=== PATIENT | male | born 1945 | race Caucasian/White ===

== ENCOUNTER 2023-08-04 17:36 | Emergency (ER) | payer MEDICARE, BC, SELFPAY ==
[2023-08-04] VITALS (10 sets, daily range): BP systolic 117–134; BP diastolic 73–82; PULSE 58–82; RESP 16; TEMP 36.2; O2SAT 93–97; BMI 26.5
--- NOTE | 2023-08-04 18:49 | ED_ITS ---
HPI - General Adult General Chief complaint: Chest Pain Stated complaint: Shoulder/chest/back pain Time Seen by Provider: 08/04/23 18:38 History of Present Illness HPI narrative: This 77-year-old male comes in reporting some discomfort in his right shoulder that kind of migrated into his right chest. This occurred like an hour or 2 prior to arrival while he was out golfing. He states that the pain is reproducible with certain movements. He was golfing with an EMT who recommend that he come in for evaluation. He states that he did have an echocardiogram a few weeks ago which showed some evidence of aortic stenosis. He does not report any hypoxia, lightheadedness, shortness of breath, nausea, vomiting, or diaphoresis. He does not report any exercise intolerance. Related Data Home Medications Medication Instructions Recorded Confirmed amlodipine 10 mg tablet 5 mg PO DAILY 01/05/23 08/04/23 aspirin 81 mg tablet,delayed 81 mg PO DAILY 01/05/23 08/04/23 release empagliflozin 25 mg tablet 25 mg PO DAILY 01/05/23 08/04/23 (Jardiance) glipizide 10 mg tablet, extended 10 mg PO BID 01/05/23 08/04/23 release 24 hr levetiracetam 500 mg 1,500 ea PO HS 01/05/23 08/04/23 tablet,extended release 24 hr losartan 100 mg tablet 100 mg PO DAILY 01/05/23 08/04/23 metformin 1,000 mg tablet 500 mg PO BID 01/05/23 08/04/23 omeprazole 40 mg capsule,delayed 20 mg PO DAILY 01/05/23 08/04/23 release rosuvastatin 10 mg tablet 10 mg PO HS 01/05/23 08/04/23 sildenafil 100 mg tablet 100 mg PO ONCE PRN 01/05/23 08/04/23 tamsulosin 0.4 mg capsule 0.4 mg PO BID 01/05/23 08/04/23 finasteride 5 mg tablet 5 mg PO DAILY 08/04/23 08/04/23 Allergies Allergy/AdvReac Type Severity Reaction Status Date / Time No Known Drug Allergies Allergy Verified 08/04/23 17:47 Review of Systems Status of ROS: Reports: 10 or more systems reviewed and unremarkable except as noted in History and below Narrative: Constitutional: No fevers, no weight gain or loss. Eyes: No discharge. No vision changes. HENT: No congestion, no sore throat, no ear pain. Cardiovascular: No chest pain, no palpitations. Respiratory: No shortness of breath, no wheezes, no cough. Gastrointestinal: No abdominal pain, no vomiting, no diarrhea. Genitourinary: No dysuria, no hematuria. Musculoskeletal: Normal range of motion. Pain in the right shoulder region extending into his right chest a bit. Skin: No rashes, no pruritis. Neurological: No dizziness, weakness, sensory change, speech change. Endo/Heme/Allergies: No bruising or bleeding. No polydipsia. Pysch: no suicidality, no anxiety, no insomnia. All other systems reviewed and are negative. [facility] Medical History , RN) Arrhythmia Diabetes Hypertension Pacemaker Prostate cancer Seizures Surgical History , RN) Hx of laminectomy S/P right knee arthroscopy (11/07/21) Social History Smoking Status: Former smoker How often do you have a drink containing alcohol: 4 or more times a week How many standard drinks containing alcohol do you have on a typical day: 3 or 4 How often do you have six or more drinks on one occasion: Never AUDIT-C Alcohol total score: 5 Non-prescribed substance use: denies use Exam Narrative: Exam Narrative: Constitutional: Well-developed, well-nourished, no acute distress. HEENT: Normocephalic, atraumatic. Neck: Normal range of motion. Nontender. Supple. Heart: Regular. Systolic ejection murmur. Normal rate. Intact distal pulses. Lungs: Clear to auscultation. No chest discomfort. No wheezes, rhonchi, or rales. Abdomen: Normal bowel sounds. Nontender. No rebound tenderness. Genitalia: Deferred. Back: No midline tenderness. Normal range of motion. Extremities: Normal range of motion. No injury. Skin: Intact. No rash. Warm. No erythema or pallor. Neurologic: No altered sensation. No weakness. Alert and oriented. Psychiatric: No suicidality. No anxiety or depression. No insomnia. Nursing notes and vitals signs are reviewed. Const: Vital Signs, click to edit/add: Vital Signs - 24 hr 08/04/23 17:44 08/04/23 18:30 08/04/23 18:34 Temperature 97.2 F L Pulse Rate 69 Pulse Rate [Pulse Oximeter] 82 Respiratory Rate 16 Blood Pressure Blood Pressure [Ri ght Upper Arm] 117/73 Pulse Oximetry 95 95 94 Oxygen Delivery Me thod Room Air 08/04/23 18:35 08/04/23 18:45 08/04/23 19:00 Temperature Pulse Rate 60 58 L 62 Pulse Rate [Pulse Oximeter] Respiratory Rate Blood Pressure 126/77 Blood Pressure [Ri ght Upper Arm] Pulse Oximetry 95 95 93 Oxygen Delivery Me thod 08/04/23 19:02 08/04/23 19:15 Temperature Pulse Rate 62 68 Pulse Rate [Pulse Oximeter] Respiratory Rate Blood Pressure 126/82 Blood Pressure [Ri ght Upper Arm] Pulse Oximetry 95 93 Oxygen Delivery Me thod Course Vital Signs Vital signs: Initial Vital Signs Temperature 97.2 F L 08/04/23 17:44 Temperature Source Temporal Artery Scan 08/04/23 17:44 Pulse Rate 82 08/04/23 17:44 Respiratory Rate 16 08/04/23 17:44 Blood Pressure 117/73 08/04/23 17:44 Blood Pressure Mean 87 08/04/23 17:44 Blood Pressure Position Sitting 08/04/23 17:44 Pulse Oximetry 95 08/04/23 17:44 Oxygen Delivery Method Room Air 08/04/23 17:44 Vital Signs Temperature 97.2 F L 08/04/23 17:44 Pulse Rate 82 08/04/23 17:44 Respiratory Rate 16 08/04/23 17:44 Blood Pressure 117/73 08/04/23 17:44 Pulse Oximetry 95 08/04/23 17:44 Oxygen Delivery Method Room Air 08/04/23 17:44 Temperature 97.2 F L 08/04/23 17:44 Pulse Rate 68 08/04/23 19:15 Respiratory Rate 16 08/04/23 17:44 Blood Pressure 126/82 08/04/23 19:02 Pulse Oximetry 93 08/04/23 19:15 Oxygen Delivery Method Room Air 08/04/23 17:44 Medical Decision Making MDM Narrative Medical decision making narrative: This patient comes in out of abundance of caution because of some pain in his right shoulder that kind of extended into his right chest. He really thinks that it is musculoskeletal discomfort that occurred while he was out golfing. He comes in to rule out any other more serious cause. EKG shows normal sinus rhythm with no sign of ST or T-wave abnormalities. Lab results also returned with normal findings. His troponin is 0. The patient does have some aortic stenosis and recently had an echocardiogram. 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 Lab Data Labs: Lab Results 08/04/23 Range/Units 18:30 WBC 8.46 (4.50-11.00) K/uL RBC 5.31 (4.30-5.90) m/uL Hgb 16.4 (13.5-17.5) gm/dL Hct 49.0 (37.0-53.0) % MCV 92 (80-100) fL MCH 31 (26-34) pg MCHC 34 (32-36) gm/dL RDW Coeff of Rosaura 12.8 (11.5-15.5) % Plt Count 151 (140-440) K/uL Neut % (Auto) 68.6 (42.0-72.0) % Lymph % (Auto) 18.3 L (20-44) % [place] % (Auto) 10.5 (0.0-11.0) % Eos % (Auto) 2.1 (0.0-7.0) % Baso % (Auto) 0.4 (0.0-3.0) % Neut # (Auto) 5.80 (1.7-7.0) K/uL Lymph # (Auto) 1.50 (0.90-2.90) K/uL [place] # (Auto) 0.90 (0.00-0.90) K/UL Eos # (Auto) 0.18 (0.00-0.50) K/uL Baso # (Auto) 0.03 (0.00-0.30) K/uL Abs Immat Gran (auto) 0.01 (0.00-0.30) K/uL Imm/Tot Granulo (auto) 0.1 % Sodium 140 (135-149) mmol/L Potassium 3.8 (3.6-5.1) mmol/L Chloride 106 (96-114) mmol/L Carbon Dioxide 22 (20-32) mmol/L Anion Gap 12 (7-15) mEq/L BUN 16 (7-30) mg/dL Creatinine 1.2 (0.5-1.5) mg/dL Estimated Creat Clear 54.91 Estimated GFR 62 ml/min Glucose 89 (60-115) mg/dL Calcium 9.4 (8.4-10.6) mg/dL POC Troponin I 0.01 (0.01-0.04) ng/ml ECG Data Attestation: I personally reviewed and interpreted this ECG as follows: Interpretation: Normal sinus rhythm. Rate is 86 beats per minute. There are no ST or T-wave abnormalities. Discharge Plan Discharge Clinical Impression: Atypical chest pain Patient Disposition: Home, Self-Care Condition: Stable Additional Instructions: Continue current plans. Follow up with MD or return if worsening symptoms occur. Prescriptions: No Action levetiracetam 500 mg tablet extended release 24 hr 1,500 ea PO HS Patient Comments: TAKE THREE TABLETS BY MOUTH AT BEDTIME tamsulosin 0.4 mg capsule 0.4 mg PO BID Patient Comments: TAKE TWO CAPSULES BY MOUTH DAILY AFTER A MEAL glipizide 10 mg tablet extended release 24hr 10 mg PO BID Patient Comments: TAKE ONE TABLET BY MOUTH TWICE DAILY BEFORE MEALS rosuvastatin 10 mg tablet 10 mg PO HS omeprazole 40 mg capsule,delayed release(DR/EC) 20 mg PO DAILY Patient Comments: TAKE 1 CAPSULE BY MOUTH ONCE DAILY losartan 100 mg tablet 100 mg PO DAILY Patient Comments: TAKE 1 TABLET BY MOUTH EVERY DAY metformin 1,000 mg tablet 500 mg PO BID Patient Comments: Jardiance 25 mg tablet 25 mg PO DAILY Patient Comments: TAKE ONE TABLET BY MOUTH ONE TIME DAILY sildenafil 100 mg tablet 100 mg PO ONCE PRN Patient Comments: TAKE ONE HALF TABLET BY MOUTH ONCE DAILY NEEDED FOR ED. TAKE 30 MIN TO 4 HOURS BEFORE SEXUAL ACTIVITY. MAX 100MG / 24HRS amlodipine 10 mg tablet 5 mg PO DAILY Patient Comments: TAKE 1 TABLET BY MOUTH EVERY DAY aspirin 81 mg tablet,delayed release (DR/EC) 81 mg PO DAILY finasteride 5 mg tablet 5 mg PO DAILY Follow Up/Referrals: David Crawford MD [Primary Care Provider] - Stand Alone Forms: [employer] Info Instructions
[2023-08-04 18:53] LABS: Troponin, Point-of-Care* 0.01 ng/ml (0.01-0.04)
[2023-08-04 19:00] LABS: Basophils Absolute Auto 0.03 K/uL (0.00-0.30); Basophils Percent Auto 0.4 % (0.0-3.0); Eosinophils Absolute Auto 0.18 K/uL (0.00-0.50); Eosinophils Percent Auto 2.1 % (0.0-7.0); Hemoglobin* 16.4 gm/dL (13.5-17.5); Immature Granulocytes Abs Auto 0.01 K/uL (0.00-0.30); Immature Granulocytes Pct Auto 0.1 %; Lymphocytes Percent Auto 18.3 % (20-44); Mean Corpuscular HGB Conc 34 gm/dL (32-36); Mean Corpuscular Hemoglobin 31 pg (26-34); Mean Corpuscular Volume 92 fL (80-100); Monocytes Percent Auto 10.5 % (0.0-11.0); Neutrophils Percent Auto 68.6 % (42.0-72.0); Platelet Count* 151 K/uL (140-440); RDW Coefficient of Variation % 12.8 % (11.5-15.5); Red Blood Count 5.31 m/uL (4.30-5.90); White Blood Count* 8.46 K/uL (4.50-11.00)
[2023-08-04 19:06] LABS: Slide Review Reflex No
[2023-08-04 19:12] LABS: Chloride* 106 mmol/L (96-114); Potassium* 3.8 mmol/L (3.6-5.1); Sodium* 140 mmol/L (135-149)
[2023-08-04 19:15] LABS: Anion Gap 12 mEq/L (7-15); Carbon Dioxide* 22 mmol/L (20-32); Creatinine* 1.2 mg/dL (0.5-1.5); Est. Creatinine Clearance* 54.91; Estimated Glomerular Filt Rate 62 ml/min
[2023-08-04 19:16] LABS: Blood Urea Nitrogen* 16 mg/dL (7-30); Calcium* 9.4 mg/dL (8.4-10.6); Glucose* 89 mg/dL (60-115)
== END 2023-08-04 19:55 | disposition home or self-care (01) ==
PROVIDERS: Emergency Provider Emergency Medicine Emergency Medical Services; PCP Family Medicine
DX: R07.9 Chest pain, unspecified (principal)
CPT/HCPCS: 36415; 80048; 84484; 85025; 93005; 94761; 99284

== ENCOUNTER 2024-05-13 09:41 | Outpatient (CLI) | payer MEDICARE, SELFPAY ==
--- NOTE | 2024-05-13 12:01 | W.ANESCHARGE ---
Anesthesia Charges Start Date/Time Anesthesia Start Date: 05/13/24 Anesthesia Start Time: 11:35 Stop Date/Time Anesthesia Stop Date: 05/13/24 Anesthesia Stop Time: 12:01 Summary Extremes of Age - Over 70 or under 1: MDA
--- NOTE | 2024-05-13 12:06 | W.ANESCHARGE ---
Anesthesia Charges Start Date/Time Anesthesia Start Date: 05/13/24 Anesthesia Start Time: 11:35 Stop Date/Time Anesthesia Stop Date: 05/13/24 Anesthesia Stop Time: 12:01
== END 2024-05-13 09:42 | disposition home or self-care (01) ==
LOC: OP CLINIC 09:43
PROVIDERS: PCP Family Medicine; Visit Provider Internal Medicine Gastroenterology
DX: Z12.11 Encounter for screening for malignant neoplasm of colon (principal); K63.5 Polyp of colon; Z86.010 Personal history of colon polyps
CPT/HCPCS: 00811; 45385; 88305; 99100; J2704

== ENCOUNTER 2024-06-04 14:56 | Outpatient (CLI) | payer MEDICARE, SELFPAY | END 2024-06-04 14:57 | disposition home or self-care (01) | LOC: AMB 06-05 02:46 | PROVIDERS: PCP Family Medicine; Visit Provider Emergency Medicine Emergency Medical Services | DX: R07.89 Other chest pain (principal) | CPT/HCPCS: A0425; A0427 ==

== ENCOUNTER 2024-06-04 15:23 | Emergency (ER) | payer MEDICARE, SELFPAY ==
[2024-06-04] VITALS (9 sets, daily range): BP systolic 130–159; BP diastolic 86–112; PULSE 63–75; RESP 12–18; TEMP 36.6; O2SAT 94–100; BMI 26.5
--- NOTE | 2024-06-04 15:54 | ED_ITS ---
HPI - Chest Pain General Chief Complaint: Chest Pain Stated Complaint: Chest pain Time Seen by Provider: 06/04/24 15:26 History of Present Illness HPI narrative: This 78-year-old male comes in reporting onset of chest pain about 2 hours prior to arrival. He was doing some light activity all in the yd and had rather sudden onset of pain that he rated at 7/10 in severity. He made his way back into the house and sat for about half an hour and the pain did not subside. He came in then by ambulance after taking 8 baby aspirin. He does have a history of a aortic stenosis and is scheduled to have an angiogram next week as part of a plan with Collect to attend to a valve repair or replacement. He does not report any exertional symptoms in the past. He states that he went golfing every day other the past week and did not have any symptoms. Today he denies having any nausea, vomiting, lightheadedness, shortness of breath, or diaphoresis. He states that he continues to feel some very mild discomfort. He does have a pacemaker. Related Data Home Medications ?Medication ?Instructions ?Recorded ?Confirmed amlodipine 10 mg tablet 10 mg PO DAILY 01/05/23 06/04/24 aspirin 81 mg tablet,delayed 81 mg PO DAILY 01/05/23 06/04/24 release empagliflozin 25 mg tablet 25 mg PO DAILY 01/05/23 06/04/24 (Jardiance) glipizide 10 mg tablet, extended 10 mg PO BID 01/05/23 06/04/24 release 24 hr levetiracetam 500 mg 1,000 mg PO BID 01/05/23 06/04/24 tablet,extended release 24 hr losartan 100 mg tablet 100 mg PO DAILY 01/05/23 06/04/24 metformin 1,000 mg tablet 500 mg PO BID 01/05/23 06/04/24 omeprazole 40 mg capsule,delayed 40 mg PO DAILY 01/05/23 06/04/24 release rosuvastatin 10 mg tablet 10 mg PO HS 01/05/23 06/04/24 sildenafil 100 mg tablet 100 mg PO ONCE PRN 01/05/23 06/04/24 tamsulosin 0.4 mg capsule 0.8 mg PO Q24H 01/05/23 06/04/24 finasteride 5 mg tablet 5 mg PO DAILY 08/04/23 08/04/23 Lactobacillus acidophilus 10 100 mmu cells PO DAILY 06/04/24 06/04/24 billion cell capsule (NewFlora) budesonide 0.25 mg/2 mL suspension 0.25 mg inhalation Q12H 06/04/24 06/04/24 for nebulization cholecalciferol (vitamin D3) 25 25 mcg PO DAILY 06/04/24 06/04/24 mcg (1,000 unit) capsule (Vitamin D3) coenzyme Q10 200 mg capsule (Co 200 mg PO DAILY 06/04/24 06/04/24 Q-10) cyanocobalamin (vitamin B-12) 1,000 mcg PO DAILY 06/04/24 06/04/24 1,000 mcg capsule glucosamine-chondroitin 500 mg-400 1 tab PO BID 06/04/24 06/04/24 mg tablet (Cosamin DS) magnesium glycinate 100 mg (as 200 mg PO DAILY 06/04/24 06/04/24 glycinate) tablet [id number]-ebeynywa-zvefwf 1 tab PO DAILY 06/04/24 06/04/24 tablet (Multivitamin 50 Plus tablet) omega 6-fxs-ypf-fish oil 1,000 mg 1 cap PO DAILY 06/04/24 06/04/24 (120 mg-180 mg) capsule (Fish Oil) turmeric 400 mg capsule 47.5 mg PO DAILY 06/04/24 06/04/24 Allergies Allergy/AdvReac Type Severity Reaction Status Date / Time lisinopril AdvReac Cough Verified 06/04/24 15:26 Review of Systems Status of ROS Reports: 10 or more systems reviewed and unremarkable except as noted in History and below Narrative Constitutional: No fevers, no weight gain or loss. Eyes: No discharge. No vision changes. HENT: No congestion, no sore throat, no ear pain. Cardiovascular: No palpitations. Chest pain as described above. Respiratory: No shortness of breath, no wheezes, no cough. Gastrointestinal: No abdominal pain, no vomiting, no diarrhea. Genitourinary: No dysuria, no hematuria. Musculoskeletal: Normal range of motion. Skin: No rashes, no pruritis. Neurological: No dizziness, weakness, sensory change, speech change. Endo/Heme/Allergies: No bruising or bleeding. No polydipsia. Pysch: no suicidality, no anxiety, no insomnia. All other systems reviewed and are negative. [facility] Medical History , RN) Arrhythmia Diabetes Hypertension Pacemaker Prostate cancer Seizures Surgical History , RN) Hx of laminectomy S/P right knee arthroscopy (11/07/21) Social History Smoking Status: Former smoker How often do you have a drink containing alcohol: 4 or more times a week How many standard drinks containing alcohol do you have on a typical day: 3 or 4 How often do you have six or more drinks on one occasion: Never AUDIT-C Alcohol total score: 5 Non-prescribed substance use: denies use Exam Narrative Exam Narrative: Constitutional: Well-developed, well-nourished, no acute distress. HEENT: Normocephalic, atraumatic. Neck: Normal range of motion. Nontender. Supple. Heart: Regular. No murmurs. Normal rate. Intact distal pulses. Lungs: Clear to auscultation. Chest pain as described above. The pain is not reproducible with deep breath or palpating in his chest. No wheezes, rhonchi, or rales. Abdomen: Normal bowel sounds. Nontender. No rebound tenderness. Genitalia: Deferred. Back: No midline tenderness. Normal range of motion. Extremities: Normal range of motion. No injury. Skin: Intact. No rash. Warm. No erythema or pallor. Neurologic: No altered sensation. No weakness. Alert and oriented. Psychiatric: No suicidality. No anxiety or depression. No insomnia. Nursing notes and vitals signs are reviewed. Const Vital Signs, click to edit/add: Vital Signs - 24 hr 06/04/24 15:26 06/04/24 15:28 06/04/24 16:00 Temperature 97.8 F Pulse Rate 63 72 Pulse Rate [Pulse Oximeter] 71 Respiratory Rate 18 14 14 Blood Pressure 159/86 H 153/90 H Blood Pressure [Right Upper Arm] 159/86 H Pulse Oximetry 99 99 97 Oxygen Delivery Method Room Air 06/04/24 16:30 06/04/24 17:00 06/04/24 17:39 Temperature Pulse Rate 72 75 68 Pulse Rate [Pulse Oximeter] Respiratory Rate 12 16 14 Blood Pressure 147/91 H Blood Pressure [Right Upper Arm] Pulse Oximetry 94 98 97 Oxygen Delivery Method 06/04/24 18:02 Temperature Pulse Rate 64 Pulse Rate [Pulse Oximeter] Respiratory Rate 14 Blood Pressure 130/90 H Blood Pressure [Right Upper Arm] Pulse Oximetry 100 Oxygen Delivery Method Room Air Course Vital Signs Vital signs: Initial Vital Signs Temperature 97.8 F 06/04/24 15:26 Temperature Source Temporal Artery Scan 06/04/24 15:26 Pulse Rate 71 06/04/24 15:26 Respiratory Rate 18 06/04/24 15:26 Blood Pressure 159/86 H 06/04/24 15:26 Blood Pressure Mean 110 H 06/04/24 15:26 Blood Pressure Position Semi-Fowlers 06/04/24 15:26 Pulse Oximetry 99 06/04/24 15:26 Oxygen Delivery Method Room Air 06/04/24 15:26 Vital Signs Temperature 97.8 F 06/04/24 15:26 Pulse Rate 71 06/04/24 15:26 Respiratory Rate 18 06/04/24 15:26 Blood Pressure 159/86 H 06/04/24 15:26 Pulse Oximetry 99 06/04/24 15:26 Oxygen Delivery Method Room Air 06/04/24 15:26 Temperature 97.8 F 06/04/24 15:26 Pulse Rate 64 06/04/24 18:02 Respiratory Rate 14 06/04/24 18:02 Blood Pressure 130/90 H 06/04/24 18:02 Pulse Oximetry 100 06/04/24 18:02 Oxygen Delivery Method Room Air 06/04/24 18:02 MDM - Chest Pain MDM Narrative Medical decision making narrative: This patient comes in reporting chest pain as described above. Upon arrival here he had very mild symptoms. EKG is showing a paced rhythm that does not show specific ST or T-wave abnormalities. The patient took 8 baby aspirin prior to arrival. Troponin point of care returned initially at 0.01 and after a couple hours returned at 0.04. I then ordered a lab troponin I which also returned at 0.04. This patient has good exercise tolerance. And did not have any other associated symptoms. He does have aortic stenosis and is scheduled for angiogram this coming week at [facility]. The angiogram is being done to evaluate for a TAVR. At this is a good follow-up plan for him. I did advise him regarding signs and symptoms that would indicate a need for return and re-evaluation. Lab Data Labs: Lab Results 06/04/24 06/04/24 Range/Units 15:30 17:35 WBC 7.52 (4.50-11.00) K/uL RBC 5.30 (4.30-5.90) m/uL Hgb 16.2 (13.5-17.5) gm/dL Hct 49.1 (37.0-53.0) % MCV 93 (80-100) fL MCH 31 (26-34) pg MCHC 33 (32-36) gm/dL RDW Coeff of Rosaura 12.7 (11.5-15.5) % Plt Count 161 (140-440) K/uL Neut % (Auto) 67.1 (42.0-72.0) % Lymph % (Auto) 19.3 L (20-44) % [place] % (Auto) 9.3 (0.0-11.0) % Eos % (Auto) 3.2 (0.0-7.0) % Baso % (Auto) 0.4 (0.0-3.0) % Neut # (Auto) 5.05 (1.7-7.0) K/uL Lymph # (Auto) 1.50 (0.90-2.90) K/uL [place] # (Auto) 0.70 (0.00-0.90) K/UL Eos # (Auto) 0.24 (0.00-0.50) K/uL Baso # (Auto) 0.03 (0.00-0.30) K/uL Abs Immat Gran (auto) 0.05 (0.00-0.30) K/uL Imm/Tot Granulo (auto) 0.7 % Sodium 137 (135-149) mmol/L Potassium 3.8 (3.6-5.1) mmol/L Chloride 102 (96-114) mmol/L Carbon Dioxide 26 (20-32) mmol/L Anion Gap 9 (7-15) mEq/L BUN 19 (7-30) mg/dL Creatinine 1.1 (0.5-1.5) mg/dL Estimated Creat Clear 58.95 Estimated GFR 69 ml/min Glucose 214 H (60-115) mg/dL Calcium 10.0 (8.4-10.6) mg/dL Troponin I 0.04 (0.01-0.04) ng/mL POC Troponin I 0.04 (0.01-0.04) ng/ml ECG Data Attestation: I personally reviewed and interpreted this ECG as follows: Interpretation: Paced rhythm, rate is 71 beats per minute. There are no specific ST or T-wave abnormalities. Discharge Plan Discharge Clinical Impression: Atypical chest pain Patient Disposition: Home w/ Parent or Adult Condition: Improved Additional Instructions: Continue current plans. Activity as tolerated. Follow up with MD as scheduled return if symptoms are recurrent. Prescriptions: No Action levetiracetam 500 mg tablet extended release 24 hr 1,000 mg PO BID tamsulosin 0.4 mg capsule 0.8 mg PO Q24H Patient Comments: TAKE TWO CAPSULES BY MOUTH DAILY AFTER A MEAL glipizide 10 mg tablet extended release 24hr 10 mg PO BID Patient Comments: TAKE ONE TABLET BY MOUTH TWICE DAILY BEFORE MEALS rosuvastatin 10 mg tablet 10 mg PO HS omeprazole 40 mg capsule,delayed release(DR/EC) 40 mg PO DAILY Patient Comments: TAKE 1 CAPSULE BY MOUTH ONCE DAILY losartan 100 mg tablet 100 mg PO DAILY Patient Comments: TAKE 1 TABLET BY MOUTH EVERY DAY metformin 1,000 mg tablet 500 mg PO BID Patient Comments: Jardiance 25 mg tablet 25 mg PO DAILY Patient Comments: TAKE ONE TABLET BY MOUTH ONE TIME DAILY sildenafil 100 mg tablet 100 mg PO ONCE PRN Patient Comments: TAKE ONE HALF TABLET BY MOUTH ONCE DAILY NEEDED FOR ED. TAKE 30 MIN TO 4 HOURS BEFORE SEXUAL ACTIVITY. MAX 100MG / 24HRS amlodipine 10 mg tablet 10 mg PO DAILY Patient Comments: TAKE 1 TABLET BY MOUTH EVERY DAY aspirin 81 mg tablet,delayed release (DR/EC) 81 mg PO DAILY budesonide 0.25 mg/2 mL suspension for nebulization 0.25 mg inhalation Q12H Patient Comments: Inhale 2 mL (0.25 mg) via a nebulizer two times daily.* coenzyme Q10 [Co Q-10] 200 mg capsule 200 mg PO DAILY cyanocobalamin (vitamin B-12) 1,000 mcg capsule 1,000 mcg PO DAILY omega 4-ecg-hdz-fish oil [Fish Oil] 1,000 mg (120 mg-180 mg) capsule 1 cap PO DAILY glucosamine-chondroitin [Cosamin DS] 500-400 mg tablet 1 tab PO BID turmeric 400 mg capsule 47.5 mg PO DAILY Multivitamin 50 Plus Tablet 1 tab PO DAILY NewFlora 10 billion cell capsule 100 mmu cells PO DAILY magnesium glycinate 100 mg tablet 200 mg PO DAILY cholecalciferol (vitamin D3) [Vitamin D3] 25 mcg (1,000 unit) capsule 25 mcg PO DAILY finasteride 5 mg tablet 5 mg PO DAILY Follow Up/Referrals: David Crawford MD [Primary Care Provider] - Stand Alone Forms: [employer] Info Instructions
[2024-06-04 16:01] LABS: Hematocrit 49.1 % (37.0-53.0); Hemoglobin* 16.2 gm/dL (13.5-17.5); Lymphocytes Percent Auto 19.3 % (20-44); Mean Corpuscular HGB Conc 33 gm/dL (32-36); Mean Corpuscular Hemoglobin 31 pg (26-34); Mean Corpuscular Volume 93 fL (80-100); Neutrophils Percent Auto 67.1 % (42.0-72.0); Platelet Count* 161 K/uL (140-440); RDW Coefficient of Variation % 12.7 % (11.5-15.5); White Blood Count* 7.52 K/uL (4.50-11.00)
[2024-06-04 16:02] LABS: Basophils Absolute Auto 0.03 K/uL (0.00-0.30); Basophils Percent Auto 0.4 % (0.0-3.0); Eosinophils Absolute Auto 0.24 K/uL (0.00-0.50); Eosinophils Percent Auto 3.2 % (0.0-7.0); Immature Granulocytes Abs Auto 0.05 K/uL (0.00-0.30); Immature Granulocytes Pct Auto 0.7 %; Monocytes Percent Auto 9.3 % (0.0-11.0); Neutrophils Absolute Auto 5.05 K/uL (1.7-7.0)
[2024-06-04 16:05] LABS: Slide Review Reflex No
[2024-06-04 16:14] LABS: Chloride* 102 mmol/L (96-114); Sodium* 137 mmol/L (135-149)
[2024-06-04 16:15] LABS: Potassium* 3.8 mmol/L (3.6-5.1)
[2024-06-04 16:17] LABS: Creatinine* 1.1 mg/dL (0.5-1.5); Est. Creatinine Clearance* 58.95; Estimated Glomerular Filt Rate 69 ml/min
[2024-06-04 16:18] LABS: Anion Gap 9 mEq/L (7-15); Blood Urea Nitrogen* 19 mg/dL (7-30); Carbon Dioxide* 26 mmol/L (20-32); Glucose* 214 mg/dL (60-115)
[2024-06-04 17:48] LABS: Troponin, Point-of-Care* 0.04 ng/ml (0.01-0.04)
[2024-06-04 18:35] LABS: Troponin I* 0.04 ng/mL (0.01-0.04)
[2024-07-26 10:44] LABS: Troponin, Point-of-Care* 0.01 ng/ml (0.01-0.04)
== END 2024-06-04 19:05 | disposition home or self-care (01) ==
PROVIDERS: Emergency Provider Emergency Medicine Emergency Medical Services; PCP Family Medicine
DX: R07.9 Chest pain, unspecified (principal)
CPT/HCPCS: 36415; 80048; 84484; 85025; 93005; 99284

== ENCOUNTER 2024-10-28 21:01 | Emergency (ER) | payer MEDICARE, SELFPAY ==
[2024-10-28] VITALS (18 sets, daily range): BP systolic 131–151; BP diastolic 71–94; PULSE 76–109; RESP 16; TEMP 37.3; O2SAT 92–98; BMI 26.5
[2024-10-28 21:44] LABS: Lactate Sepsis w/Reflex* 1.5 mmol/L (0.5-1.9)
[2024-10-28 21:49] LABS: Basophils Percent Auto 0.1 % (0.0-3.0); Eosinophils Percent Auto 0.1 % (0.0-7.0); Hematocrit 47.3 % (37.0-53.0); Hemoglobin* 15.6 gm/dL (13.5-17.5); Immature Granulocytes Pct Auto 0.2 %; Lymphocytes Percent Auto 2.2 % (20-44); Mean Corpuscular HGB Conc 33 gm/dL (32-36); Mean Corpuscular Hemoglobin 30 pg (26-34); Mean Corpuscular Volume 91 fL (80-100); Monocytes Percent Auto 3.3 % (0.0-11.0); Neutrophils Percent Auto 94.1 % (42.0-72.0); Platelet Count* 94 K/uL (140-440); RDW Coefficient of Variation % 12.7 % (11.5-15.5); Red Blood Count 5.22 m/uL (4.30-5.90)
[2024-10-28] MEDS: ONDANSETRON 2 MG/ML inj 4 MG IVP (21:52)
[2024-10-28] MEDS: 0.9 % SODIUM CHLORIDE 500 ML 500 ML IV (21:52)
[2024-10-28 21:58] LABS: Slide Review Reflex No
[2024-10-28 22:01] LABS: Albumin* 4.2 g/dL (3.3-5.0); Chloride* 104 mmol/L (96-114)
[2024-10-28 22:02] LABS: Potassium* 4.1 mmol/L (3.6-5.1); Sodium* 137 mmol/L (135-149)
[2024-10-28 22:04] LABS: Creatinine* 1.1 mg/dL (0.5-1.5); Estimated Glomerular Filt Rate 68 ml/min
[2024-10-28 22:05] LABS: Alanine Aminotransferase* 33 U/L (4-50); Alkaline Phosphatase* 56 U/L (40-150); Anion Gap 13 mEq/L (7-15); Aspartate Amino Transferase* 29 U/L (12-35); Bilirubin Direct* 0.4 mg/dL (0.0-0.5); Bilirubin Total* 1.5 mg/dL (0.1-1.5); Blood Urea Nitrogen* 20 mg/dL (7-30); Calcium* 9.1 mg/dL (8.4-10.6); Carbon Dioxide* 20 mmol/L (20-32); Glucose* 198 mg/dL (60-115); Total Protein* 6.8 g/dL (6.0-8.3)
[2024-10-28 22:11] LABS: C Reactive Protein* < 0.5 mg/dL (0.5-1.0)
--- NOTE | 2024-10-28 22:11 | ED.GENADULT ---
HPI - General Adult General Date Seen: 10/28/24 Chief complaint: Nausea/Vomiting Stated complaint: Vomiting, upset stomach Time Seen by Provider: 10/28/24 21:23 Source: patient History of Present Illness HPI narrative: Patient is a 79-year-old male with history of TAVR about a month ago. He was at clinic today and had a CT scan for routine follow-up. A couple hours after getting home, he had sudden onset of vomiting and nonbloody diarrhea. He thinks he had 3 or 4 episodes of both. He had some crampy abdominal pain which is now improved. They called the nurse line and were advised to come to the ER. He has not had any fevers, no difficulty breathing, no vomiting blood. He thought he might have gotten food poisoning from cracker barrel but he and his ate the same thing and she is not sick. Other medical history reviewed. He is here tonight with his . Related Data Home Medications ?Medication ?Instructions ?Recorded ?Confirmed amlodipine 10 mg tablet 10 mg PO DAILY 01/05/23 06/04/24 aspirin 81 mg tablet,delayed 81 mg PO DAILY 01/05/23 06/04/24 release empagliflozin 25 mg tablet 25 mg PO DAILY 01/05/23 06/04/24 (Jardiance) glipizide 10 mg tablet, extended 10 mg PO BID 01/05/23 06/04/24 release 24 hr levetiracetam 500 mg 1,000 mg PO BID 01/05/23 06/04/24 tablet,extended release 24 hr losartan 100 mg tablet 100 mg PO DAILY 01/05/23 06/04/24 metformin 1,000 mg tablet 500 mg PO BID 01/05/23 06/04/24 omeprazole 40 mg capsule,delayed 40 mg PO DAILY 01/05/23 06/04/24 release rosuvastatin 10 mg tablet 10 mg PO HS 01/05/23 06/04/24 sildenafil 100 mg tablet 100 mg PO ONCE PRN 01/05/23 06/04/24 tamsulosin 0.4 mg capsule 0.8 mg PO Q24H 01/05/23 06/04/24 finasteride 5 mg tablet 5 mg PO DAILY 08/04/23 08/04/23 Lactobacillus acidophilus 10 100 mmu cells PO DAILY 06/04/24 06/04/24 billion cell capsule (NewFlora) budesonide 0.25 mg/2 mL suspension 0.25 mg inhalation Q12H 06/04/24 06/04/24 for nebulization cholecalciferol (vitamin D3) 25 25 mcg PO DAILY 06/04/24 06/04/24 mcg (1,000 unit) capsule (Vitamin D3) coenzyme Q10 200 mg capsule (Co 200 mg PO DAILY 06/04/24 06/04/24 Q-10) cyanocobalamin (vitamin B-12) 1,000 mcg PO DAILY 06/04/24 06/04/24 1,000 mcg capsule glucosamine-chondroitin 500 mg-400 1 tab PO BID 06/04/24 06/04/24 mg tablet (Cosamin DS) magnesium glycinate 100 mg (as 200 mg PO DAILY 06/04/24 06/04/24 glycinate) tablet [id number]-[id number] 1 tab PO DAILY 06/04/24 06/04/24 tablet (Multivitamin 50 Plus tablet) omega 8-wia-nhr-fish oil 1,000 mg 1 cap PO DAILY 06/04/24 06/04/24 (120 mg-180 mg) capsule (Fish Oil) turmeric 400 mg capsule 47.5 mg PO DAILY 06/04/24 06/04/24 Allergies Allergy/AdvReac Type Severity Reaction Status Date / Time lisinopril AdvReac Cough Verified 06/04/24 15:26 Review of Systems Status of ROS: Reports: 10 or more systems reviewed and unremarkable except as noted in History and below [facility] Medical History Arrhythmia ?I49.9 - Cardiac arrhythmia, unspecified (ICD-10) Prostate cancer ?C61 - Malignant neoplasm of prostate (ICD-10) Diabetes ?E11.9 - Type 2 diabetes mellitus without complications (ICD-10) Pacemaker ?Z95.0 - Presence of cardiac pacemaker (ICD-10) Hypertension ?I10 - Essential (primary) hypertension (ICD-10) Seizures ?R56.9 - Unspecified convulsions (ICD-10) Surgical History Hx of laminectomy ?Z98.890 - Other specified postprocedural states (ICD-10) S/P right knee arthroscopy (11/07/21) ?Z98.890 - Other specified postprocedural states (ICD-10) Social History Smoking Status: Former smoker How often do you have a drink containing alcohol: 4 or more times a week How many standard drinks containing alcohol do you have on a typical day: 3 or 4 How often do you have six or more drinks on one occasion: Never AUDIT-C Alcohol total score: 5 Non-prescribed substance use: denies use Exam Narrative: Exam Narrative: Vital signs reviewed In general, alert, nontoxic Head: Normocephalic, atraumatic. Eyes: Sclera clear. Pupils equal and reactive. ENT: Mucous membranes moist. Neck: Supple without adenopathy. Heart: Regular rate and rhythm without murmur. Lungs: Clear. No increased work of breathing, crackles or wheezes. Abdomen: Soft, nontender to palpation. Extremities: Well perfused, pulses intact. No significant edema. Neurologic: Alert, conversant. Speech fluent, face symmetric. Moves all extremities equally. Skin: Warm, dry well perfused. Affect: Normal. Const: Vital Signs, click to edit/add: Vital Signs - 24 hr 10/28/24 21:11 10/28/24 21:24 10/28/24 21:51 Temperature 99.1 F Pulse Rate 107 H Pulse Rate [Pulse Oximeter] 94 Respiratory Rate 16 Blood Pressure 139/87 Blood Pressure [Ri ght Upper Arm] 144/94 H Pulse Oximetry 96 96 94 Oxygen Delivery Me thod Room Air 10/28/24 21:52 10/28/24 22:00 10/28/24 22:02 Temperature Pulse Rate 87 89 76 Pulse Rate [Pulse Oximeter] Respiratory Rate Blood Pressure 134/78 Blood Pressure [Ri ght Upper Arm] Pulse Oximetry 95 95 96 Oxygen Delivery Me thod 10/28/24 22:15 10/28/24 22:22 10/28/24 22:30 Temperature Pulse Rate 80 92 88 Pulse Rate [Pulse Oximeter] Respiratory Rate 16 Blood Pressure 151/82 H Blood Pressure [Ri ght Upper Arm] Pulse Oximetry 98 96 92 Oxygen Delivery Me thod 10/28/24 22:42 10/28/24 22:45 10/28/24 23:00 Temperature Pulse Rate 96 92 91 Pulse Rate [Pulse Oximeter] Respiratory Rate Blood Pressure 137/72 Blood Pressure [Ri ght Upper Arm] Pulse Oximetry 92 96 94 Oxygen Delivery Me thod 10/28/24 23:03 10/28/24 23:15 10/28/24 23:22 Temperature Pulse Rate 109 H 103 H 100 Pulse Rate [Pulse Oximeter] Respiratory Rate Blood Pressure 131/81 Blood Pressure [Ri ght Upper Arm] Pulse Oximetry 95 95 92 Oxygen Delivery Me thod 10/28/24 23:30 10/28/24 23:42 10/28/24 23:45 Temperature Pulse Rate 94 96 98 Pulse Rate [Pulse Oximeter] Respiratory Rate 16 Blood Pressure 147/71 H Blood Pressure [Ri ght Upper Arm] Pulse Oximetry 92 95 93 Oxygen Delivery Me thod Documenting provider has reviewed patient's vital signs: yes Course Course ED Course: I think there was some concern that this might be related to the CT scan earlier. I do not think the 2 are related. I do not think this represents allergic reaction. Most likely this is viral, but will do some labs, check hydration, look for metabolic derangement or evidence of more serious intra-abdominal pathology that might necessitate imaging. For right now, I am giving him some IV fluids and some Zofran, will assess labs and then reassess how he is feeling. Labs overall reassuring. He has a mild elevation in his white blood cell count to 16,000, I think fairly nonspecific and this setting and could be related to demargination. His hemoglobin is normal. His metabolic panel is normal, blood sugars 198. Lactate is 1.5. COVID is negative. CRP is less than 0.5. He is feeling markedly improved after fluids and Zofran. He was able to drink some fluids and had a couple crackers. He is eager to go home which I think is reasonable. Discussed that symptoms are most likely viral, if he has persistent vomiting be on a couple days I would like him to be seen again. Discussed that diarrhea can last 7-10 days but if it is persisting beyond that he should be seen again. If he has significant abdominal pain, develops fevers, bloody stools, unusual rashes or other worsening return to the ER at any time for re-evaluation. Primary care follow-up for further concerns. Vital Signs Vital signs: Initial Vital Signs Temperature 99.1 F 10/28/24 21:11 Temperature Source Temporal Artery Scan 10/28/24 21:11 Pulse Rate 94 10/28/24 21:11 Respiratory Rate 16 10/28/24 21:11 Blood Pressure 144/94 H 10/28/24 21:11 Blood Pressure Mean 110 H 10/28/24 21:11 Blood Pressure Position Sitting 10/28/24 21:11 Pulse Oximetry 96 10/28/24 21:11 Oxygen Delivery Method Room Air 10/28/24 21:11 Vital Signs Temperature 99.1 F 10/28/24 21:11 Pulse Rate 94 10/28/24 21:11 Respiratory Rate 16 10/28/24 21:11 Blood Pressure 144/94 H 10/28/24 21:11 Pulse Oximetry 96 10/28/24 21:11 Oxygen Delivery Method Room Air 10/28/24 21:11 Temperature 99.1 F 10/28/24 21:11 Pulse Rate 98 10/28/24 23:45 Respiratory Rate 16 10/28/24 23:42 Blood Pressure 147/71 H 10/28/24 23:42 Pulse Oximetry 93 10/28/24 23:45 Oxygen Delivery Method Room Air 10/28/24 21:11 Medications Administered Medications: Discontinued Medications Generic Name Dose Route Start Last Admin Trade Name Freq PRN Reason Stop Dose Admin Sodium Chloride 500 mls @ 500 mls/hr 10/28/24 21:24 10/28/24 23:02 0.9 % Sodium Chloride 500 Ml IV 10/28/24 22:23 Infused .Q1H ONE Infusion Ondansetron HCl 4 mg 10/28/24 21:24 10/28/24 21:52 Ondansetron 2 Mg/Ml Inj IVP 10/28/24 21:25 4 mg ONCE ONE Administration Medical Decision Making Lab Data Labs: Lab Results 10/28/24 10/28/24 10/28/24 Range/Units 21:32 21:37 21:37 WBC 16.00 H (4.50-11.00) K/uL RBC 5.22 (4.30-5.90) m/uL Hgb 15.6 (13.5-17.5) gm/dL Hct 47.3 (37.0-53.0) % MCV 91 (80-100) fL MCH 30 (26-34) pg MCHC 33 (32-36) gm/dL RDW Coeff of Rosaura 12.7 (11.5-15.5) % Plt Count 94 L (140-440) K/uL Neut % (Auto) 94.1 H (42.0-72.0) % Lymph % (Auto) 2.2 L (20-44) % Delta % (Auto) 3.3 (0.0-11.0) % Eos % (Auto) 0.1 (0.0-7.0) % Baso % (Auto) 0.1 (0.0-3.0) % Neut # (Auto) 15.10 H (1.7-7.0) K/uL Lymph # (Auto) 0.40 L (0.90-2.90) K/uL Delta # (Auto) 0.50 (0.00-0.90) K/UL Eos # (Auto) 0.00 (0.00-0.50) K/uL Baso # (Auto) 0.00 (0.00-0.30) K/uL Abs Immat Gran (auto) 0.00 (0.00-0.30) K/uL Imm/Tot Granulo (auto) 0.2 % Sodium 137 (135-149) mmol/L Potassium 4.1 (3.6-5.1) mmol/L Chloride 104 (96-114) mmol/L Carbon Dioxide 20 (20-32) mmol/L Anion Gap 13 (7-15) mEq/L BUN 20 (7-30) mg/dL Creatinine 1.1 (0.5-1.5) mg/dL Estimated Creat Clear 58.00 Estimated GFR 68 ml/min Glucose 198 H (60-115) mg/dL Lactate 1.5 (0.5-1.9) mmol/L Calcium 9.1 (8.4-10.6) mg/dL Total Bilirubin 1.5 (0.1-1.5) mg/dL Direct Bilirubin 0.4 (0.0-0.5) mg/dL AST 29 (12-35) U/L ALT 33 (4-50) U/L Alkaline Phosphatase 56 (40-150) U/L C-Reactive Protein < 0.5 L Cancelled (0.5-1.0) mg/dL Total Protein 6.8 (6.0-8.3) g/dL Albumin 4.2 (3.3-5.0) g/dL SARS-CoV-2 (PCR) Negative SARS-CoV-2 (Negative) Influenza Type A (PCR) Negative PCR FLU A (Negative) Influenza Type B (PCR) Negative PCR FLU B (Negative) RSV (PCR) Negative PCR RSV (Negative) POC Troponin I 0.00 L (0.01-0.04) ng/ml Discharge Plan Discharge Clinical Impression: Vomiting and diarrhea Patient Disposition: Home, Self-Care Condition: Improved Instructions: Acute Nausea and Vomiting (DC), Acute Diarrhea (ED) Additional Instructions: Use Zofran if needed for nausea or vomiting. Recommend clear liquids, advanced diet as able. Return to the ER at any time for severe abdominal pain, fever, bloody stools, or other worsening symptoms. See your primary doctor if not improving over the next couple of days, or if you still have diarrhea at 7-10 days. Prescriptions: No Action levetiracetam 500 mg tablet extended release 24 hr 1,000 mg PO BID tamsulosin 0.4 mg capsule 0.8 mg PO Q24H Patient Comments: TAKE TWO CAPSULES BY MOUTH DAILY AFTER A MEAL glipizide 10 mg tablet extended release 24hr 10 mg PO BID Patient Comments: TAKE ONE TABLET BY MOUTH TWICE DAILY BEFORE MEALS rosuvastatin 10 mg tablet 10 mg PO HS omeprazole 40 mg capsule,delayed release(DR/EC) 40 mg PO DAILY Patient Comments: TAKE 1 CAPSULE BY MOUTH ONCE DAILY losartan 100 mg tablet 100 mg PO DAILY Patient Comments: TAKE 1 TABLET BY MOUTH EVERY DAY metformin 1,000 mg tablet 500 mg PO BID Patient Comments: Jardiance 25 mg tablet 25 mg PO DAILY Patient Comments: TAKE ONE TABLET BY MOUTH ONE TIME DAILY sildenafil 100 mg tablet 100 mg PO ONCE PRN Patient Comments: TAKE ONE HALF TABLET BY MOUTH ONCE DAILY NEEDED FOR ED. TAKE 30 MIN TO 4 HOURS BEFORE SEXUAL ACTIVITY. MAX 100MG / 24HRS amlodipine 10 mg tablet 10 mg PO DAILY Patient Comments: TAKE 1 TABLET BY MOUTH EVERY DAY aspirin 81 mg tablet,delayed release (DR/EC) 81 mg PO DAILY budesonide 0.25 mg/2 mL suspension for nebulization 0.25 mg inhalation Q12H Patient Comments: Inhale 2 mL (0.25 mg) via a nebulizer two times daily.* coenzyme Q10 [Co Q-10] 200 mg capsule 200 mg PO DAILY cyanocobalamin (vitamin B-12) 1,000 mcg capsule 1,000 mcg PO DAILY omega 0-hau-eii-fish oil [Fish Oil] 1,000 mg (120 mg-180 mg) capsule 1 cap PO DAILY glucosamine-chondroitin [Cosamin DS] 500-400 mg tablet 1 tab PO BID turmeric 400 mg capsule 47.5 mg PO DAILY Multivitamin 50 Plus Tablet 1 tab PO DAILY NewFlora 10 billion cell capsule 100 mmu cells PO DAILY magnesium glycinate 100 mg tablet 200 mg PO DAILY cholecalciferol (vitamin D3) [Vitamin D3] 25 mcg (1,000 unit) capsule 25 mcg PO DAILY finasteride 5 mg tablet 5 mg PO DAILY Follow Up/Referrals: David Crawford MD [Primary Care Provider] - Stand Alone Forms: [employer] Info Instructions
[2024-10-28 22:18] LABS: PCR FLU A Negative PCR FLU A (Negative); PCR FLU B Negative PCR FLU B (Negative); PCR RSV Negative PCR RSV (Negative); SARS PCR* Negative SARS-CoV-2 (Negative)
== END 2024-10-28 23:50 | disposition home or self-care (01) ==
PROVIDERS: Emergency Provider Emergency Medicine; PCP Family Medicine
DX: R11.2 Nausea with vomiting, unspecified (principal); R19.7 Diarrhea, unspecified
CPT/HCPCS: 36415; 80048; 80076; 83605; 84484; 85025; 86140; 87631; 93005; 94761; 96374; 99284; J2405; J7030

== ENCOUNTER 2025-01-24 14:00 | Outpatient (RCR) | payer MEDICARE, SELFPAY | END 2025-05-24 23:59 | disposition home or self-care (01) | PROVIDERS: PCP Family Medicine; Visit Provider Orthopaedic Surgery | DX: M19.012 Primary osteoarthritis, left shoulder (principal); M75.102 Unspecified rotator cuff tear or rupture of left shoulder, not specified as traumatic; M75.42 Impingement syndrome of left shoulder; Z51.89 Encounter for other specified aftercare | CPT/HCPCS: 97110; 97140; 97162 ==

== ENCOUNTER 2025-06-02 12:20 | Outpatient (CLI) | payer MEDICARE, SELFPAY | END 2025-06-02 12:21 | disposition home or self-care (01) | LOC: RAD 12:21 | PROVIDERS: PCP Family Medicine; Visit Provider Student in an Organized Health Care Education/Training Program | DX: Z95.2 Presence of prosthetic heart valve (principal); I07.1 Rheumatic tricuspid insufficiency | CPT/HCPCS: 93306 ==